=== PATIENT | male | born 1995 | race Caucasian/White ===

== ENCOUNTER 2024-01-23 15:57 | Emergency (ER) | payer SELFPAY ==
[2024-01-23 16:01] VITALS: BP 141/88; PULSE 62; RESP 16; TEMP 36.9; O2SAT 96
--- NOTE | 2024-01-23 16:40 | ED.GENADUL_ITS ---
Discharge Plan Disposition Patient Disposition: Home Discharge Details Clinical Impression: Acute otitis media Primary Care Provider: Unknown,Unknown ED Provider: Janki Mckeon Home Meds and New Rx's Prescriptions: New amoxicillin-pot clavulanate 875-125 mg tablet 1 tab PO BID Qty: 10 0RF Discharge Instructions Additional Instructions: A referral has been made to case management to help you establish care with a primary care provider. Please take the Augmentin for the full course as prescribed. Symptoms should start feeling better within the next 48 hours. You may use ibuprofen 2 to 3 tablets (400- 600 mg) every 8 hours as needed for discomfort. Warm and cool compresses may be helpful. Return to emergency care if you develop new fevers after 48 hours, vision changes, difficulty opening your mouth, protrusion of your ear, or if you are very worried and need to be rechecked again immediately Discharge Data Discharge Date/Time-TO BE ENTERED AT DEPARTURE: 01/23/24 17:02 HPI General Date/Time Provider Initiated Documentation: 01/23/24 16:13 . HPI Narrative: Wilver is a 28-year-old male presents to the emergency department today for evaluation of left ear pain that radiates into the left side of his jaw. He re ports this started approximately 1 week ago, is accompanied by allover headache, L upper teeth pain, and right ear discomfort as well. He denies associated fever/chills, vision changes, drainage from ear, neck pain. He does have a history of frequent ear infections. Physical exam remarkable for dullness with purulent fluid noted behind the left TM. Pain with manipulation of pinna. No protrusion of ear or pain with palpation of mastoid. No trismus. No obvious dental abscess noted. He does have some tenderness to palpation of the left upper teeth. History and presentation consistent with AOM, unclear if tooth pain is referred pain versus dental pain. No red flags concerning for deep space infection/extension of infection indicating need for blood work or emergent diagnostic imaging at this time. Will treat with Augmentin x 7 days. Referral made for care management to help patient establish care with a PCP. Educated on symptomatic management and red flags indicating need for return to emergency care. He voices agreement with plan of care peer Related Data Home Medications ?Medication ?Instructions ?Recorded ?Confirmed amoxicillin 875 mg-potassium 1 tab PO BID #10 tabs 01/23/24 clavulanate 125 mg tablet Previous Rx's ?Medication ?Instructions ?Recorded amoxicillin 875 mg-potassium 1 tab PO BID #10 tabs 01/23/24 clavulanate 125 mg tablet Allergies Allergy/AdvReac Type Severity Reaction Status Date / Time No Known Allergies Allergy Unverified 01/23/24 16:07 General Stated Complaint: EarProblem JENNYFER: 4 Review of Systems Narrative: see HPI Exam Const General: cooperative, healthy appearing, comfortable, no acute distress, well developed and well groomed Nutritional Appearance: average body habitus Orientation: alert and oriented x3 HENMT Head: normal to inspection, normocephalic and atraumatic Ears: hearing grossly normal bilaterally, TM normal on the right, EAC's normal and TM abnormal bulging, dull, wth effusion and with fluid behind the TM on the left (purulent); not perforated Face and sinus: normal facial exam Mouth: oral mucosae normal, lip normal, tongue normal, salivary ducts normal, oropharynx normal and no muffled voice Teeth and gingiva: other (Discomfort with palpation of left upper teeth) Throat: posterior oropharynx normal Eyes General: appearance normal, both eyes and all related structures Neck Neck: normal visual inspection, full ROM, no lymphadenopathy and no meningeal signs Resp Effort & Inspection: normal respiratory effort and able to speak in complete sentences Back/Spine/Pelvis Cervical Spine: normal cervical lordosis and cervical ROM normal Course Vital Signs Vital signs: Vital Signs Temperature 36.9 C 01/23/24 16:01 Pulse 62 01/23/24 16:01 Respiratory Rate 16 01/23/24 16:01 Blood Pressure 141/88 H 01/23/24 16:01 Pulse Oximetry 96 01/23/24 16:01 Temperature 36.9 C 01/23/24 16:01 Temperature Source Temporal Artery Scan 01/23/24 16:01 Pulse 62 01/23/24 16:01 Respiratory Rate 16 01/23/24 16:01 Respiratory Effort Normal 01/23/24 16:06 Blood Pressure 141/88 H 01/23/24 16:01 Blood Pressure Position Sitting 01/23/24 16:01 Pulse Oximetry 96 01/23/24 16:01 Oxygen Delivery Method Room Air 01/23/24 16:01 Oxygen Flow Rate 0 01/23/24 16:01 Pain Level 9 01/23/24 16:01 Medical Decision Making Quality:SDOH Health Related Social Needs: No Data to Display PFSH All Active Problems (Updated 01/23/24 @ 16:45 by Janki Hidalgo) Acute otitis media (Acute) Social History Smoking risk assessment performed?: No
[2024-01-23] MEDS: Amoxicillin 875/Clav. 125 TAB PO (17:01)
[2024-01-23] MEDS: Amox. 875/Clav. 125, 2 TABS/BTL 1 TAB PO (17:01)
== END 2024-01-23 17:02 | disposition home or self-care (01) ==
LOC: ER 16:56
PROVIDERS: Emergency Provider Nurse Practitioner Family
DX: H92.02 Otalgia, left ear (principal); H66.92 Otitis media, unspecified, left ear
CPT/HCPCS: 99283